=== PATIENT | female | born 1965 | race Caucasian/White ===

== ENCOUNTER → 2021-02-25 | Outpatient (CLI) | payer OTHER ==
[~2021-02-25] MED LIST: ALBU8.5H8 INH; LOSA1TAB25 PO; METF500T17 PO; ROSU10TA2 PO
[2021-02-25 08:15] LABS: BASOPHILS % (AUTO) 1 % (0-1); EOSINOPHILS % (AUTO) 3 % (1-7); LYMPHOCYTES % (AUTO) 22 % (22-44); MEAN CORPUSCULAR HEMOGLOBIN 30.5 pg (27.0-34.8); MEAN CORPUSCULAR HGB CONC 33.5 g/dL (32.4-35.8); MONOCYTES % (AUTO) 9 % (2-9); NEUTROPHILS % (AUTO) 65 % (42-75); PLATELET COUNT 327 x10^3/uL (130-400); RED BLOOD COUNT 4.84 x10^6/uL (3.82-5.3); RED CELL DISTRIBUTION WIDTH 13.4 % (9.6-15.2)
[2021-02-25 08:16] LABS: MICROSCOPIC NOT IND
[2021-02-25 08:27] LABS: CHLORIDE 104 mmol/L (98-107)
[2021-02-25 09:21] LABS: ALANINE AMINOTRANSFERASE 47 U/L (12-78); ALBUMIN 3.8 g/dL (3.4-5.0); ANION GAP 4 mmol/L (5-15); CALCIUM 9.8 mg/dL (8.5-10.1); CREATININE 0.72 mg/dL (0.55-1.02)
[2021-02-25 09:26] LABS: ALKALINE PHOSPHATASE 85 U/L (45-117); BILIRUBIN,TOTAL 0.4 mg/dL (0.2-1.0); TOTAL PROTEIN 8.1 g/dL (6.4-8.2)
== END | disposition home or self-care (01) ==
LOC: STAR 07:22
PROVIDERS: ATTEND Obstetrics & Gynecology
DX: Z01.818 Encounter for other preprocedural examination (principal); N81.6 Rectocele; N81.4 Uterovaginal prolapse, unspecified; Z20.822 Contact with and (suspected) exposure to COVID-19
CPT/HCPCS: 36415; 80053; 81003; 84702; 85025; 93005; U0003; U0005

== ENCOUNTER 2021-03-04 05:44 | Day surgery (SDC) | payer OTHER ==
[~2021-03-04] VITALS: Ht 157.5 cm; Wt 81.6 kg
[2021-03-04] MEDS ORDERED: CEFAZOLIN 1,000 MG IVPB ONE (06:30)
[2021-03-04] MEDS ORDERED: CHLORHEXIDINE 15 ML UDC PO ONE (06:30)
[2021-03-04] MEDS ORDERED: ACETAMINOPHEN 500 MG TABLET PO ONE (06:30)
[2021-03-04] MEDS ORDERED: GABAPENTIN 300 MG CAPSULE PO ONE (06:30)
[2021-03-04] MEDS ORDERED: LACTATED RINGERS 1,000 ML IV SCH (06:30)
[2021-03-04] MEDS ORDERED: CEFAZOLIN PMX 2GM/50ML 50 ML IVPB ONE (07:00)
[2021-03-04 07:01] LABS: HCG UR SG 1.029 (1.003-1.030)
[2021-03-04] MEDS ORDERED: EPINEPHRINE 1 MG/ML, 1ML ONE (07:04)
[2021-03-04] MEDS ORDERED: FLUORESCEIN SODIUM 500 MG/5 ML ONE (07:04)
[2021-03-04] MEDS ORDERED: BUPIVACAINE/PF 0.25% ONE (07:04)
[2021-03-04] MEDS ORDERED: ESTROGENS CONJUGATED VAG CRM 0.625MG/1G, 30GM ONE (07:04)
[2021-03-04] MEDS ORDERED: MIDAZOLAM 1 MG/ML, 2ML ONE (07:06)
[2021-03-04] MEDS ORDERED: FENTANYL PF 250 MCG/5ML ONE (07:06)
[2021-03-04] MEDS ORDERED: KETOROLAC 30 MG/1 ML ONE (07:32)
[2021-03-04] MEDS ORDERED: CEFAZOLIN 1,000 MG ONE (07:32)
[2021-03-04] MEDS ORDERED: METOPROLOL 1 MG/ML, 5ML ONE (07:32)
[2021-03-04] MEDS ORDERED: ONDANSETRON 2MG/ML, 2ML ONE (07:32)
[2021-03-04] MEDS ORDERED: SUGAMMADEX 200 MG/2 ML IVPush ONE (07:32)
[2021-03-04] MEDS ORDERED: DEXAMETHASONE 4 MG/ML, 1ML ONE (07:32)
[2021-03-04] MEDS ORDERED: SUCCINYLCHOLINE 20 MG/ML, 10ML ONE (07:32)
[2021-03-04] MEDS ORDERED: PROPOFOL 10 MG/ML, 20ML ONE (07:32)
[2021-03-04] MEDS ORDERED: MEPERIDINE/PF 25MG/0.5ML IVPush PRN (08:30)
[2021-03-04] MEDS ORDERED: HYDROmorphone 1 MG/ML, 1ML INJ IVPush PRN (08:30)
[2021-03-04] MEDS ORDERED: FENTANYL PF 100 MCG/2ML IV PRN (08:30)
[2021-03-04] MEDS ORDERED: OXYcodone 5 MG/5 ML ORAL.SOL UDC PO PRN (08:30)
[2021-03-04] MEDS ORDERED: hydrALAzine 20 MG/ML, 1ML IV PRN (08:30)
[2021-03-04] MEDS ORDERED: LABETALOL 5MG/ML, 20ML IV PRN (08:30)
[2021-03-04] MEDS ORDERED: PROMETHAZINE 25 MG/ML, 1ML IVPush PRN (08:30)
[2021-03-04] MEDS ORDERED: LORazepam 2 MG/ML, 1ML IVPush PRN (08:30)
[2021-03-04] MEDS ORDERED: ACETAMINOPHEN 325 MG TABLET PO PRN (08:30)
== END 2021-03-04 14:45 | disposition home or self-care (01) ==
LOC: OUT 05:44
PROVIDERS: ATTEND Obstetrics & Gynecology
DX: N81.2 Incomplete uterovaginal prolapse (principal); D25.1 Intramural leiomyoma of uterus; N88.8 Other specified noninflammatory disorders of cervix uteri; N81.6 Rectocele; I10 Essential (primary) hypertension; E11.9 Type 2 diabetes mellitus without complications; E78.5 Hyperlipidemia, unspecified; J45.909 Unspecified asthma, uncomplicated; Z79.84 Long term (current) use of oral hypoglycemic drugs; Z79.899 Other long term (current) drug therapy; Z98.890 Other specified postprocedural states
CPT/HCPCS: 57260; 58552; 81025; 82962; 88305; J0171; J0330; J0690; J1100; J1885; J2250; J2405; J2704; J3010; J7120